=== PATIENT | male | born 1975 | race Caucasian/White ===

== ENCOUNTER 2021-04-20 15:08 | Inpatient (IN) | payer OTHER ==
[~2021-04-20] VITALS: Ht 170.2 cm; Wt 99.8 kg
[2021-04-20 15:35] LABS: ABG BASE EXCESS 0.6 mmol/L (-2.0-3.0); ABG HCO3 24.3 mmol/L (21.0-28.0); ABG OXYGEN SATURATION 75.7 % (95.0-99.0); ABG PCO2 36 mmHg (32-45)
[2021-04-20 15:36] LABS: BASOPHILS % (AUTO) 0.2 % (0.0-5.0); EOSINOPHILS % (AUTO) 0.2 % (0.0-8.0); HEMATOCRIT 39.8 % (36-48); LYMPHOCYTES % (AUTO) 20.4 % (21.0-51.0); MEAN CORPUSCULAR HEMOGLOBIN 32.9 pg (27.0-33.0); MEAN CORPUSCULAR HGB CONC 35.4 g/dL (32.0-36.0); MONOCYTES % (AUTO) 7.3 % (3.0-13.0); NEUTROPHILS % (AUTO) 71.4 % (40.0-77.0); PLATELET COUNT (AUTO) 136 K/uL (130-400); RED BLOOD CELL COUNT(AUTO) 4.28 MIL/uL (4.00-5.50); RED CELL DISTRIBUTION WIDTH 11.9 % (11.0-15.5); WHITE BLOOD COUNT (AUTO) 5.9 K/uL (4.8-10.8)
[2021-04-20 15:45] LABS: POTASSIUM 3.7 mmol/L (3.5-5.1)
[2021-04-20 15:56] VITALS: BP 145/69
[2021-04-20 15:59] LABS: ALBUMIN 3.4 g/dL (3.5-5.0); BILIRUBIN,TOTAL 0.7 mg/dL (0.2-1.0); TOTAL PROTEIN, SERUM 7.9 g/dL (6.0-8.3)
[2021-04-20] MEDS ORDERED: ALBUTEROL INHALER 90MCG/INH IH PRN (16:00)
[2021-04-20] MEDS ORDERED: ACETAMINOPHEN WITH CODEINE 1 TAB TAB PO SCH (16:00)
[2021-04-20 16:03] LABS: CRP QUANTITATIVE 131.2 mg/L (0.00-9.0)
[2021-04-20] MEDS ORDERED: ACETAMINOPHEN 325 MG TAB PO PRN ×2 (16:30)
[2021-04-20] MEDS ORDERED: ONDANSETRON 4MG INJ IV PRN (16:30)
[2021-04-20] MEDS ORDERED: PHARMACY COMMUNICATION MISC SCH ×3 (16:30→18:00)
[2021-04-20] MEDS: DOXYCYCLINE 100MG+NS 250ML IV SCH (17:23)
[2021-04-20] MEDS: CEFTRIAXONE 1G VIAL IVP SCH (17:23)
[2021-04-20] MEDS ORDERED: ERGOCALCIFEROL (VITAMIN D2) 50,000 UNIT CAPSULE PO ONE (17:30)
[2021-04-20] MEDS ORDERED: REMDESIVIR (EUA) 520 200 MG in 0.9% NACL 250ML 250 ML IV ONE (18:00)
[2021-04-20] MEDS ORDERED: COMPOUND IV REFRIGERATED 1 EACH IVSOLN MISC PRN (18:00)
[2021-04-20 18:14] VITALS: BP 120/78
[2021-04-20] MEDS: BARICITINIB (EUA) 2 MG TABLET PO SCH (18:50)
[2021-04-20 19:47] VITALS: BP 111/63
[2021-04-20] MEDS: BUPROPION HCL 150 MG TABLET.SA PO SCH (21:00)
[2021-04-20] MEDS: DEXAMETHASONE SOD PHOSPHATE 4 MG/ML 1ML VIAL IVP SCH (21:43)
[2021-04-20] MEDS: FAMOTIDINE 20MG VIAL IV SCH (21:43)
[2021-04-20] MEDS: ENOXAPARIN SODIUM 40 MG/0.4 ML SYRINGE SQ SCH (21:43)
[2021-04-20 21:51] VITALS: BP 113/65
[2021-04-20 22:45] VITALS: BP 138/86
[2021-04-21 03:49] VITALS: BP 113/70
[2021-04-21 04:56] LABS: BASOPHILS % (AUTO) 0.2 % (0.0-5.0); EOSINOPHILS % (AUTO) 0.4 % (0.0-8.0); HEMATOCRIT 38.5 % (42-54); LYMPHOCYTES % (AUTO) 25.8 % (21.0-51.0); MEAN CORPUSCULAR HEMOGLOBIN 33.3 pg (27.0-33.0); MEAN CORPUSCULAR HGB CONC 34.5 g/dL (32.0-36.0); MEAN CORPUSCULAR VOLUME 96.3 fL (79-99); MONOCYTES % (AUTO) 7.7 % (3.0-13.0); NEUTROPHILS % (AUTO) 65.4 % (40.0-77.0); PLATELET COUNT (AUTO) 127 K/uL (130-400); RED CELL DISTRIBUTION WIDTH 12.1 % (11.0-15.5); WHITE BLOOD COUNT (AUTO) 5.6 K/uL (4.8-10.8)
[2021-04-21 05:32] LABS: ALBUMIN 2.8 g/dL (3.5-5.0); BILIRUBIN,TOTAL 0.5 mg/dL (0.2-1.0); CREATININE 0.9 mg/dL (0.5-1.5); CRP QUANTITATIVE 124.8 mg/L (0.00-9.0); TOTAL PROTEIN, SERUM 7.1 g/dL (6.0-8.3)
[2021-04-21] MEDS: CEFTRIAXONE 1G VIAL IVP SCH ×2 (06:08→15:51)
[2021-04-21] MEDS: DOXYCYCLINE 100MG+NS 250ML IV SCH ×2 (06:08→16:38)
[2021-04-21 07:40] VITALS: BP 128/68
[2021-04-21] MEDS: BARICITINIB (EUA) 2 MG TABLET PO SCH (08:58)
[2021-04-21] MEDS: BUPROPION HCL 150 MG TABLET.SA PO SCH ×2 (08:59→20:36)
[2021-04-21] MEDS: DEXAMETHASONE SOD PHOSPHATE 4 MG/ML 1ML VIAL IVP SCH ×2 (08:59→20:36)
[2021-04-21] MEDS: ASCORBIC ACID 500 MG TAB PO SCH (08:59)
[2021-04-21] MEDS: ZINC SULFATE 220 CAPSULE PO SCH (08:59)
[2021-04-21] MEDS: FAMOTIDINE 20MG VIAL IV SCH ×2 (08:59→20:35)
[2021-04-21] MEDS: ENOXAPARIN SODIUM 40 MG/0.4 ML SYRINGE SQ SCH ×2 (09:00→20:38)
[2021-04-21 11:15] VITALS: BP 124/76
[2021-04-21 15:40] VITALS: BP 116/65
[2021-04-21] MEDS: REMDESIVIR (EUA) 520 100 MG in 0.9% NACL 250ML 250 ML IV SCH (17:16)
[2021-04-21 20:15] VITALS: BP 124/69
[2021-04-21 23:27] VITALS: BP 112/72
[2021-04-22 04:09] VITALS: BP 113/64
[2021-04-22] MEDS: CEFTRIAXONE 1G VIAL IVP SCH ×2 (04:39→16:15)
[2021-04-22] MEDS: DOXYCYCLINE 100MG+NS 250ML IV SCH ×2 (04:39→16:15)
[2021-04-22 05:00] LABS: HEMATOCRIT 38.8 % (42-54); LYMPHOCYTES % (AUTO) 20.8 % (21.0-51.0); MEAN CORPUSCULAR HEMOGLOBIN 32.5 pg (27.0-33.0); MEAN CORPUSCULAR HGB CONC 35.1 g/dL (32.0-36.0); MEAN CORPUSCULAR VOLUME 92.8 fL (79-99); MONOCYTES % (AUTO) 7.9 % (3.0-13.0); NEUTROPHILS % (AUTO) 70.4 % (40.0-77.0); PLATELET COUNT (AUTO) 180 K/uL (130-400); RED BLOOD CELL COUNT(AUTO) 4.18 MIL/uL (4.50-6.20); RED CELL DISTRIBUTION WIDTH 11.8 % (11.0-15.5); WHITE BLOOD COUNT (AUTO) 4.7 K/uL (4.8-10.8)
[2021-04-22 05:22] LABS: ALBUMIN 2.8 g/dL (3.5-5.0); BILIRUBIN,TOTAL 0.4 mg/dL (0.2-1.0); CREATININE 0.9 mg/dL (0.5-1.5); CRP QUANTITATIVE 98.9 mg/L (0.00-9.0); TOTAL PROTEIN, SERUM 7.5 g/dL (6.0-8.3)
[2021-04-22] MEDS: REMDESIVIR LABS MISC SCH (05:31)
[2021-04-22 07:35] VITALS: BP_SYST 123; BP_SYST 163; BP_DIAS 66; BP_DIAS 76
[2021-04-22] MEDS: FAMOTIDINE 20MG VIAL IV SCH ×2 (09:30→20:47)
[2021-04-22] MEDS: ASCORBIC ACID 500 MG TAB PO SCH (09:30)
[2021-04-22] MEDS: ZINC SULFATE 220 CAPSULE PO SCH (09:30)
[2021-04-22] MEDS: BUPROPION HCL 150 MG TABLET.SA PO SCH ×2 (09:30→20:48)
[2021-04-22] MEDS: DEXAMETHASONE SOD PHOSPHATE 4 MG/ML 1ML VIAL IVP SCH ×2 (09:30→20:48)
[2021-04-22] MEDS: BARICITINIB (EUA) 2 MG TABLET PO SCH (09:31)
[2021-04-22] MEDS: ENOXAPARIN SODIUM 40 MG/0.4 ML SYRINGE SQ SCH ×2 (09:32→20:56)
[2021-04-22 11:25] VITALS: BP 141/72
[2021-04-22 15:35] VITALS: BP 141/89
[2021-04-22] MEDS: REMDESIVIR (EUA) 520 100 MG in 0.9% NACL 250ML 250 ML IV SCH (18:23)
[2021-04-22 20:00] VITALS: BP 158/72
[2021-04-23 00:01] VITALS: BP 130/77
[2021-04-23] MEDS: DOXYCYCLINE 100MG+NS 250ML IV SCH ×2 (04:17→17:27)
[2021-04-23] MEDS: CEFTRIAXONE 1G VIAL IVP SCH ×2 (04:17→17:26)
[2021-04-23 04:21] VITALS: BP 103/50
[2021-04-23 05:35] LABS: BASOPHILS % (AUTO) 0.1 % (0.0-5.0); HEMATOCRIT 37.7 % (42-54); MEAN CORPUSCULAR HEMOGLOBIN 32.4 pg (27.0-33.0); MEAN CORPUSCULAR VOLUME 95.4 fL (79-99); MONOCYTES % (AUTO) 7.9 % (3.0-13.0); NEUTROPHILS % (AUTO) 77.8 % (40.0-77.0); PLATELET COUNT (AUTO) 245 K/uL (130-400); RED BLOOD CELL COUNT(AUTO) 3.95 MIL/uL (4.50-6.20); RED CELL DISTRIBUTION WIDTH 11.8 % (11.0-15.5); WHITE BLOOD COUNT (AUTO) 10.5 K/uL (4.8-10.8)
[2021-04-23 05:50] LABS: ALBUMIN 2.8 g/dL (3.5-5.0); BILIRUBIN,TOTAL 0.4 mg/dL (0.2-1.0); CRP QUANTITATIVE 40.5 mg/L (0.00-9.0); POTASSIUM 3.8 mmol/L (3.5-5.1); TOTAL PROTEIN, SERUM 7.1 g/dL (6.0-8.3)
[2021-04-23] MEDS: REMDESIVIR LABS MISC SCH (06:00)
[2021-04-23 08:00] VITALS: BP 123/71
[2021-04-23] MEDS: FAMOTIDINE 20MG VIAL IV SCH ×2 (10:45→21:32)
[2021-04-23] MEDS: DEXAMETHASONE SOD PHOSPHATE 4 MG/ML 1ML VIAL IVP SCH ×2 (10:45→21:32)
[2021-04-23] MEDS: BARICITINIB (EUA) 2 MG TABLET PO SCH (10:45)
[2021-04-23] MEDS: ENOXAPARIN SODIUM 40 MG/0.4 ML SYRINGE SQ SCH ×2 (10:46→21:44)
[2021-04-23] MEDS: ASCORBIC ACID 500 MG TAB PO SCH (10:46)
[2021-04-23] MEDS: BUPROPION HCL 150 MG TABLET.SA PO SCH ×2 (10:46→21:32)
[2021-04-23] MEDS: ZINC SULFATE 220 CAPSULE PO SCH (10:46)
[2021-04-23 12:00] VITALS: BP 117/68
[2021-04-23 13:05] LABS: HEMOGLOBIN A1C 5.6 % (4.0-6.0)
[2021-04-23] MEDS: NICOTINE 14 MG/ 24 HR PATCH TD SCH (14:00)
[2021-04-23 16:00] VITALS: BP 115/57
[2021-04-23] MEDS: REMDESIVIR (EUA) 520 100 MG in 0.9% NACL 250ML 250 ML IV SCH (18:40)
[2021-04-23 20:34] VITALS: BP 127/76
[2021-04-23] MEDS: ALBUTEROL INHALER 90MCG/INH IH PRN (21:44)
[2021-04-23] MEDS: GUAIFENESIN-DM 200/20 MG 10 ML PO PRN (22:43)
[2021-04-24 00:16] VITALS: BP 104/56
[2021-04-24] MEDS: ALBUTEROL INHALER 90MCG/INH IH PRN (03:53)
[2021-04-24] MEDS: GUAIFENESIN-DM 200/20 MG 10 ML PO PRN (03:53)
[2021-04-24 03:59] VITALS: BP 109/57
[2021-04-24] MEDS: DOXYCYCLINE 100MG+NS 250ML IV SCH (04:23)
[2021-04-24] MEDS: CEFTRIAXONE 1G VIAL IVP SCH (04:23)
[2021-04-24] MEDS: REMDESIVIR LABS MISC SCH (06:00)
[2021-04-24 06:44] LABS: BASOPHILS % (AUTO) 0.2 % (0.0-5.0); HEMATOCRIT 36.9 % (42-54); LYMPHOCYTES % (AUTO) 9.6 % (21.0-51.0); MEAN CORPUSCULAR HEMOGLOBIN 32.9 pg (27.0-33.0); MEAN CORPUSCULAR HGB CONC 33.9 g/dL (32.0-36.0); MEAN CORPUSCULAR VOLUME 97.1 fL (79-99); MONOCYTES % (AUTO) 8.6 % (3.0-13.0); NEUTROPHILS % (AUTO) 79.6 % (40.0-77.0); PLATELET COUNT (AUTO) 259 K/uL (130-400); RED CELL DISTRIBUTION WIDTH 11.9 % (11.0-15.5); WHITE BLOOD COUNT (AUTO) 12.5 K/uL (4.8-10.8)
[2021-04-24 06:53] LABS: ALBUMIN 2.8 g/dL (3.5-5.0); BILIRUBIN,TOTAL 0.4 mg/dL (0.2-1.0); POTASSIUM 4.3 mmol/L (3.5-5.1); TOTAL PROTEIN, SERUM 6.4 g/dL (6.0-8.3)
[2021-04-24 08:00] VITALS: BP 113/68
[2021-04-24] MEDS: BARICITINIB (EUA) 2 MG TABLET PO SCH (08:53)
[2021-04-24] MEDS: NICOTINE 14 MG/ 24 HR PATCH TD SCH (08:53)
[2021-04-24] MEDS: FAMOTIDINE 20MG VIAL IV SCH (08:53)
[2021-04-24] MEDS: BUPROPION HCL 150 MG TABLET.SA PO SCH (08:54)
[2021-04-24] MEDS: ZINC SULFATE 220 CAPSULE PO SCH (08:54)
[2021-04-24] MEDS: ASCORBIC ACID 500 MG TAB PO SCH (08:54)
[2021-04-24] MEDS: ENOXAPARIN SODIUM 40 MG/0.4 ML SYRINGE SQ SCH (08:54)
[2021-04-24] MEDS: DEXAMETHASONE SOD PHOSPHATE 4 MG/ML 1ML VIAL IVP SCH (08:54)
[2021-04-24] MEDS: REMDESIVIR (EUA) 520 100 MG in 0.9% NACL 250ML 250 ML IV SCH (10:14)
[2021-04-24] MEDS ORDERED: APIX2.5T PO (11:17)
[2021-04-24] MEDS ORDERED: PANT40TA55 PO (11:17)
[2021-04-24] MEDS ORDERED: DEXA6TAB PO (11:17)
[2021-04-24 12:00] VITALS: BP 127/68
== END 2021-04-24 13:40 | disposition home or self-care (01) | DRG 177 ==
LOC: EDH 15:08 → EDSEX 15:08 → EDHIP 17:28 → UNDOADMIN 17:28 → 4AH 22:52
PROVIDERS: ADMIT Internal Medicine; ATTEND Internal Medicine
PROC: XW033E5 Introduction of Remdesivir Anti-infective into Peripheral Vein, Percutaneous Approach, New Technology Group 5 (ICD-10-PCS; principal; 2021-04-20)
PROC: XW0DXM6 Introduction of Baricitinib into Mouth and Pharynx, External Approach, New Technology Group 6 (ICD-10-PCS; 2021-04-20)
DX: U07.1 COVID-19 (principal); J12.82 Pneumonia due to coronavirus disease 2019; J80 Acute respiratory distress syndrome; D68.59 Other primary thrombophilia; R79.89 Other specified abnormal findings of blood chemistry; Z87.891 Personal history of nicotine dependence
CPT/HCPCS: 36415; 36600; 71045; 80053; 82728; 82803; 83036; 83605; 83880; 84145; 84484; 85025; 85378; 86140; 87040; 87071; 87077; 87186; 87205; 87486; 87581; 87633; 87635; 87798; 87804; 87880; 93005; 93970; 94760; C9803; G0378; J0696; J1100; J1650; J3490; J7050